=== PATIENT | female | born 2000 | race Hispanic/Latino ===

== ENCOUNTER 2018-09-22 18:01 | Emergency (ER) | payer MEDICAID, OTHER ==
[2018-09-22] MEDS ORDERED: MECLIZINE HCL 25 MG TABLET ONE (19:58)
[2018-09-22 20:04] LABS: APPEARANCE,URINE CLOUDY (CLEAR); BILIRUBIN,URINE NEGATIVE (NEGATIVE); COLOR,URINE YELLOW (YELLOW); GLUCOSE, URINE (UA) NEGATIVE (NEGATIVE); KETONES,URINE 15 mg/dL (NEGATIVE); LEUKOCYTE ESTERASE ,URINE NEGATIVE (NEGATIVE); NITRATE,URINE NEGATIVE (NEGATIVE); OCCULT BLOOD,URINE NEGATIVE (NEGATIVE); PH,URINE 7.5 (5.0-8.0); PROTEIN,URINE NEGATIVE (NEGATIVE)
[2018-09-22 20:11] LABS: HCG,QUAL RESULT NEGATIVE (NEGATIVE)
[2018-09-22 20:16] LABS: AMORPHOUS SEDIMENT,UR Moderate /LPF (None Seen); BACTERIA,URINE Few /HPF (None Seen); RBC,URINE None Seen /HPF (0-1)
== END 2018-09-22 20:47 | disposition home or self-care (01) ==
LOC: EDH 18:01
DX: H81.10 Benign paroxysmal vertigo, unspecified ear (principal); Z98.890 Other specified postprocedural states
CPT/HCPCS: 81001; 81025; 93005

== ENCOUNTER 2018-09-27 00:04 | Emergency (ER) | payer OTHER | END 2018-09-27 00:46 | disposition home or self-care (01) | LOC: EDH 00:04 | DX: R10.13 Epigastric pain (principal); Z98.890 Other specified postprocedural states ==

== ENCOUNTER 2018-11-19 21:27 | Emergency (ER) | payer MEDICAID, OTHER | END 2018-11-19 23:48 | disposition home or self-care (01) | LOC: EDH 21:27 | DX: H92.03 Otalgia, bilateral (principal); J06.9 Acute upper respiratory infection, unspecified; Z98.890 Other specified postprocedural states | CPT/HCPCS: 99281 ==